=== PATIENT | male | born 1980 | race Caucasian/White ===

== ENCOUNTER 2018-03-06 23:42 | Emergency (ER) | payer BC ==
--- NOTE | 2018-03-07 00:44 | XR ---
EXAMINATION TYPE: XR hand complete LT DATE OF EXAM: 03/07/2018 COMPARISON: NONE HISTORY: Wrist pain and hand pain TECHNIQUE: 3 views FINDINGS: I see no fracture nor dislocation. Metacarpals are intact. Joint spaces are normal. IMPRESSION: Negative left hand exam.
--- NOTE | 2018-03-07 00:45 | XR ---
EXAMINATION TYPE: XR wrist complete LT DATE OF EXAM: 03/07/2018 COMPARISON: NONE HISTORY: Pain TECHNIQUE: 4 views FINDINGS: I see no fracture nor dislocation. Carpal bones are intact. Joint spaces are normal. Soft t issues appear normal. IMPRESSION: Negative left wrist exam.
--- NOTE | 2018-03-07 01:09 | ED ---
Upper Extremity HPI - General Chief Complaint: Extremity Injury, Upper Stated Complaint: Sprained L wrist Source: patient, family Mode of arrival: ambulatory Limitations: no limitations - History of Present Illness Initial Comments: 37-year-old male who denies past medical history presenting today for chief complaint of left wrist pain. Patient states that he was playing with his dog, who is a 7 pound Yorkie. When he was holding onto a toy the dog jumped up trying to cardiac surgeon the 20 from his hand causing him to bend his wrist back. Patient states he thought he heard a pop. He really noticed pain with ulnar and radial deviation of the wrist. Patient denied inability to range of motion , he does admit to pain with range of motion. Patient denied numbness, tingling , loss sensation, color change, coolness of the extremity. Patient denies falling, hitting his head or injury to any other extremity. Patient denies elbow, shoulder pain or injury to the digits. Remainder of ROS negative, patient denies any recent fever, chills, shortness of breath, chest pain, back pain, abdominal pain, nausea or vomiting, numbness or tingling, dysuria or hematuria, constipation or diarrhea, headaches or visual changes, or any other complaints. Upon arrival patient appears well, no signs of acute distress. There is no obvious deformity of the left wrist. Pt vital signs within acceptable limits. - Related Data Home Medications Medication Instructions Recorded Confirmed No Known Home Medications 03/19/16 03/06/18 Allergies Allergy/AdvReac Type Severity Reaction Status Date / Time pollen extracts Allergy Mild Unknown Verified 03/06/18 23:50 mold Allergy Unknown Verified 03/06/18 23:50 Review of Systems ROS Statement: Those systems with pertinent positive or pertinent negative responses have been documented in the HPI. ROS Other: All systems not noted in ROS Statement are negative. Constitutional: Denies: fever, chills ENT: Denies: ear pain, throat pain Respiratory: Denies: cough, dyspnea Cardiovascular: Denies: chest pain Endocrine: Denies: fatigue Gastrointestinal: Denies: abdominal pain, nausea, vomiting Musculoskeletal: Reports: arthralgia. Denies: back pain, joint swelling, myalgia Neurological: Denies: headache, weakness, numbness, paresthesias, confusion, abnormal gait Past Medical History Past Medical History: No Reported History Additional Past Medical History / Comment(s): seasonal allergies History of Any Multi-Drug Resistant Organisms: None Reported Past Surgical History: Cholecystectomy Past Anesthesia/Blood Transfusion Reactions: No Reported Reaction Past Psychological History: No Psychological Hx Reported Smoking Status: Light tobacco smoker Past Alcohol Use History: Occasional Past Drug Use History: None Reported General Exam - General Exam Comments Initial Comments: General: The patient is awake and alert, in no distress, and does not appear acutely ill. Eye: Pupils are equal, round and reactive to light, extra-ocular movements are intact. No nystagmus. There is normal conjunctiva bilaterally. No signs of icterus. Ears, nose, mouth and throat: There are moist mucous membranes and no oral lesions. Neck: The neck is supple, there is no tenderness or JVD. Cardiovascular: There is a regular rate and rhythm. No murmur, rub or gallop is appreciated. Respiratory: Lungs are clear to auscultation, respirations are non-labored, breath sounds are equal. No wheezes, stridor, rales, or rhonchi. Musculoskeletal: Normal ROM at the wrist bilaterally, elbows, shoulders, hands and 5 digits of each hand, patient complains of tenderness with range of motion with ulnar and radial deviation of the left wrist as well as flexion and extension. No evidence of wrist drop. Strength 5/5 with all movements of the left hand. Sensation intact of the upper extremities equally bilaterally including distal to the injury. Radial pulses equal bilaterally 2+. No noted ecchymosis or significant soft tissue swelling. No anatomical snuffbox tenderness. Capillary refill less than 2 seconds Neurological: A&O x 3. CN II-XII intact, There are no obvious motor or sensory deficits. Coordination appears grossly intact. Speech is normal. Skin: Skin is warm and dry and no rashes or lesions are noted. Psychiatric: Cooperative, appropriate mood & affect, normal judgment. Limitations: no limitations Course Vital Signs 03/06/18 03/07/18 23:46 01:15 Temperature 97.7 F 97 F L Pulse Rate 100 57 L Respiratory 20 18 Rate Blood Pressure 131/93 144/75 O2 Sat by Pulse 98 98 Oximetry Medical Decision Making - Medical Decision Making Radiographic imaging negative for acute fracture or process. Patient neurovascularly intact. No noted soft tissue swelling or ecchymosis on exam. No snuffbox tenderness. Patient was placed in Jeffy bandage. This time feel patient has restrained, however if patient's symptoms persist I recommended orthopedic surgery evaluation. Patient is agreeable plan. I recommend following with primary care physician next 1-2 days. As well as following [facility] instructions and taking ibuprofen and Motrin for pain management. I discussed the case with Dr. Wiley who agreed with the impression and plan, patient was discharged in stable condition, patient denies questions at this time. Disposition Clinical Impression: Left wrist pain Disposition: HOME SELF-CARE Condition: Good Instructions: Wrist Injury (ED), R.I.C.E. Treatment (ED) Additional Instructions: Please use medication as discussed. Please follow-up with family doctor in the next 2 days, if symptoms persist for >3 days please seek orthopedic evaluation- see attached referral. Please return to emergency room if the symptoms increase or worsen or for any other concerns. Is patient prescribed a controlled substance at d/c from ED?: No Referrals: Jono Jackson DO [Primary Care Provider] - 1-2 days Aurelia Castro NPC [Nurse Practitioner] - 1-2 days Time of Disposition: 01:09
[2018-03-07 01:16] VITALS: BP 144/75; PULSE 57; RESP 18; TEMP 97
== END 2018-03-07 01:16 | disposition home or self-care (01) ==
LOC: EC 23:42
DX: M25.532 Pain in left wrist (principal); F17.210 Nicotine dependence, cigarettes, uncomplicated; Z91.018 Allergy to other foods; Z91.048 Other nonmedicinal substance allergy status
CPT/HCPCS: 99283

== ENCOUNTER → 2018-05-21 | Outpatient (CLI) | payer BC ==
--- NOTE | 2018-05-22 07:55 | CT ---
EXAMINATION TYPE: CT wrist LT wo con DATE OF EXAM: 05/21/2018 COMPARISON: HISTORY: Nondisplaced fracture of proximal third of navicular bone of LT wrist CT DLP: 243 mGycm Automated exposure control for dose reduction was used. The graft technique: Axial images 2 mm thick sections. Reconstructed images in the coronal and sagittal planes. FINDINGS: Close attention is paid to the scaphoid. In the axial plane there is a lucency extending from the ant erior surface to the midportion of the scaphoid. Some faint extension towards the posterior aspect ma y be present. The borders appear smooth and sclerotic. This could be a nonunion of a fracture. The fr acture appears incomplete through the proximal third of the scaphoid. This appears nondisplaced. In the coronal plane very subtle lucency which may be a nondisplaced fracture at the tip of the ulnar styloid may be present. This is not reproduced on axial or sagittal images. No additional areas suspicious for acute or subacute fractures. Some degenerative joint changes noted at the first carpal metacarpal junction. Scapholunate space appears preserved. Alignment appears nor mal. IMPRESSION: 1. SUSPECTED PARTIAL NONUNION OF A PROXIMAL SCAPHOID FRACTURE. THIS APPEARS TO BE INCOMPLETE FRACTURE LINE THROUGH THE ENTIRE SCAPHOID WHICH MAY HAVE HAD HEALING ANTERIORLY. 2. NONDISPLACED FRACTURE AT THE TIP OF THE ULNAR STYLOID IS NOT EXCLUDED. THIS MAY BE ARTIFACT.
== END | disposition home or self-care (01) ==
LOC: RADCTMAIN 16:45
PROVIDERS: ATTEND Orthopaedic Surgery
DX: S52.615D Nondisplaced fracture of left ulna styloid process, subsequent encounter for closed fracture with routine healing (principal)

== ENCOUNTER → 2018-11-12 | Outpatient (CLI) | payer BC ==
--- NOTE | 2018-11-12 10:40 | CT ---
EXAMINATION TYPE: CT wrist LT wo con DATE OF EXAM: 11/12/2018 COMPARISON: 05/21/2018 HISTORY: Non healing fracture, continued pain post ORIF. CT DLP: 104.2 mGycm Automated exposure control for dose reduction was used. FINDINGS: Interval placement of fixation screw seen through the proximal scaphoid. Screw appears intact. Previo usly seen fracture through the proximal scaphoid appears to be healing/healed with a faint lucency se en on coronal imaging 14 and 15. There is sclerosis and osseous bridging with resolution of the corti ranjit break. Small amount of periprosthetic lucency is seen surrounding the screw measuring 1 mm or les s. No new fracture or dislocation is identified. Small to moderate amount of joint fluid or on the wrist. Tendons and ligaments appear grossly intact. Musculature appears normal. IMPRESSION: LEFT SCAPHOID OPEN REDUCTION AND INTERNAL FIXATION WITH NEAR COMPLETE HEALING OF THE PROXIMAL LEFT SC APHOID FRACTURE. SMALL TO MODERATE WRIST JOINT EFFUSION.
== END | disposition home or self-care (01) ==
LOC: RADCTMAIN 07:58
PROVIDERS: ATTEND Orthopaedic Surgery
DX: Z48.89 Encounter for other specified surgical aftercare (principal); Z98.890 Other specified postprocedural states

== ENCOUNTER → 2018-12-22 | Outpatient (CLI) | payer BC ==
--- NOTE | 2018-12-22 09:35 | XR ---
EXAMINATION TYPE: XR chest 2V DATE OF EXAM: 12/22/2018 COMPARISON: 02/21/2016 TECHNIQUE: PA and lateral views submitted. HISTORY: Cough FINDINGS: The lungs are clear and there is no pneumothorax, pleural effusion, or focal pneumonia. No overt fa ilure. IMPRESSION: 1. No acute process.
== END | disposition home or self-care (01) ==
LOC: RADXRMAIN 09:05
PROVIDERS: ATTEND Family Medicine
DX: J40 Bronchitis, not specified as acute or chronic (principal); R05 Cough
CPT/HCPCS: 71046

== ENCOUNTER → 2019-03-03 | Outpatient (CLI) | payer BC ==
--- NOTE | 2019-03-03 17:03 | CT ---
EXAMINATION TYPE: CT chest abdomen wo con DATE OF EXAM: 03/03/2019 COMPARISON: None HISTORY: CONSTANT COUGH WITH PAIN IN LOWER LUNGS CT DLP: 883.8mGycm Unenhanced CT of the Chest, Abdomen Unenhanced CT of the chest ,abdomen is performed. The lack of intravenous contrast limits evaluatio n of the solid and hollow viscera. Oral contrast: Yes CT Chest: LUNGS: The lungs are clear and free of infiltrate or atelectasis. No pulmonary nodule or mass is det ected. No pleural effusion or CT evidence of interstitial lung disease. MEDIASTINUM: Thoracic aorta is of normal caliber. The heart is not enlarged. No evidence for media stinal mass or adenopathy. HILAR STRUCTURES: No evidence for mass. No hilar adenopathy is appreciated. OTHER: No significant abnormality. CONTRAST CT ABDOMEN AND PELVIS: LIVER/GB: The gallbladder surgically absent. No space occupying hepatic lesion. Biliary tree is of no rmal caliber. PANCREAS: No inflammation. No distinct mass. SPLEEN: No splenic enlargement. No lesion seen. ADRENALS: No nodule. No thickening. KIDNEYS/BLADDER: No hydronephrosis. No nephrolithiasis. No disctinct renal mass. BOWEL: Normal appendix. Normal bowel caliber. No inflammation. LYMPH NODES: No greater than 1cm abdominal or pelvic lymph nodes areappreciated. AORTA: No significant abnormality. OSSEOUS STRUCTURES: No significant abnormality is seen. OTHER: No significant additional abnormality is seen. IMPRESSION: 1. No significant abnormality appreciated.
== END | disposition home or self-care (01) ==
LOC: RADCTMAIN 15:48
PROVIDERS: ATTEND Family Medicine
DX: R05 Cough (principal); R10.11 Right upper quadrant pain
CPT/HCPCS: 71250; 74150

== ENCOUNTER 2020-08-08 07:18 | Observation (INO) | payer BC ==
[2020-08-08] MEDS ORDERED: ASPIRIN 81 MG PO STA (07:29)
[2020-08-08] MEDS ORDERED: NITROGLYCERIN OINT 1 INCH/GM PACKET TOPICAL STA (07:29)
--- NOTE | 2020-08-08 07:31 | ED ---
General Adult HPI - General Chief complaint: Recheck/Abnormal Lab/Rx Stated complaint: High BP Time Seen by Provider: 08/08/20 07:24 Source: patient, RN notes reviewed Mode of arrival: ambulatory Limitations: no limitations - History of Present Illness Initial comments: Patient is a pleasant 39-year-old male presenting to the emergency Department with complaints of hypertension. Patient has had borderline hypertension and is monitoring this at home since discussion with his doctor around 6 months ago. Normally his blood pressure is running around 140/100. Today blood pressure was 180/120. Patient is having some tightness in his chest. Patient does feel little bit lightheaded. No dyspnea. No nausea. No diaphoresis. No radiation of tightness. Tightness has been mild and remains mild, rated 1 or 2/10. No leg pain or leg swelling. - Related Data Home Medications Medication Instructions Recorded Confirmed No Known Home Medications 08/08/20 08/08/20 Allergies Allergy/AdvReac Type Severity Reaction Status Date / Time pollen extracts AdvReac Mild congestion Verified 08/08/20 07:49 mold AdvReac congestion Verified 08/08/20 07:49 Review of Systems ROS Statement: Those systems with pertinent positive or pertinent negative responses have been documented in the HPI. ROS Other: All systems not noted in ROS Statement are negative. Constitutional: Denies: fever Eyes: Denies: eye pain ENT: Denies: ear pain Respiratory: Denies: cough Cardiovascular: Reports: as per HPI. Denies: palpitations Endocrine: Denies: fatigue Gastrointestinal: Denies: abdominal pain Genitourinary: Denies: urgency Musculoskeletal: Denies: back pain Skin: Denies: rash Neurological: Denies: weakness Past Medical History Past Medical History: Hypertension Additional Past Medical History / Comment(s): seasonal allergies, hiatal hernia, lower abdominal pain when eating, History of Any Multi-Drug Resistant Organisms: None Reported Past Surgical History: Cholecystectomy, Orthopedic Surgery Additional Past Surgical History / Comment(s): ORIF left wrist Past Anesthesia/Blood Transfusion Reactions: Family History of Problems w/ Anesthesia Additional Past Anesthesia/Blood Transfusion Reaction / Comment(s): mother-hard time coming out Past Psychological History: No Psychological Hx Reported Smoking Status: Never smoker Past Alcohol Use History: Occasional Past Drug Use History: None Reported - Past Family History Mother Family Medical History: No Reported History General Exam Limitations: no limitations General appearance: alert, in no apparent distress Head exam: Present: normocephalic Eye exam: Present: normal appearance Neck exam: Present: normal inspection Respiratory exam: Present: normal lung sounds bilaterally. Absent: chest wall tenderness Cardiovascular Exam: Present: regular rate, normal rhythm, normal heart sounds Expanded Peripheral pulses: 2+: Radial (R), Radial (L), Posterior Tibialis (R), Posterior Tibialis (L) GI/Abdominal exam: Present: soft. Absent: tenderness Extremities exam: Present: normal inspection. Absent: pedal edema, calf tenderness Neurological exam: Present: alert Psychiatric exam: Present: normal affect, normal mood Skin exam: Present: normal color Course Vital Signs 08/08/20 08/08/20 08/08/20 07:20 07:43 08:30 Temperature 98.8 F Pulse Rate 72 69 Pulse Rate [ 72 Sustainability Analyst ] Respiratory 20 18 Rate Blood Pressure 164/112 142/103 O2 Sat by Pulse 99 100 Oximetry 08/08/20 09:15 Temperature Pulse Rate 69 Pulse Rate [ Sustainability Analyst ] Respiratory 18 Rate Blood Pressure 145/104 O2 Sat by Pulse 100 Oximetry EKG Findings - EKG Comments: EKG Findings:: Normal sinus rhythm with a rate of 66. SD 170. QRS 84. QT 414. QTC 434. Normal axis. Normal QRS. T wave inversion lead 3. Medical Decision Making - Medical Decision Making Patient reevaluated and resting comfortably in bed. Symptoms have improved with nitroglycerin paste. Blood pressure remains high. Additional medication, metoprolol ordered. Dr. Lockhart has been paged for admission, covering for Dr. Rodriguez. Case was discussed with Dr. Lockhart, who will admit. - Lab Data Result diagrams: 08/08/20 07:39 08/08/20 07:39 Lab Results 08/08/20 08/08/20 08/08/20 Range/Units 07:39 07:39 07:39 WBC 4.9 (3.8-10.6) k/uL RBC 4.93 (4.30-5.90) m/uL Hgb 16.4 (13.0-17.5) gm/dL Hct 46.3 (39.0-53.0) % MCV 93.9 (80.0-100.0) fL MCH 33.2 (25.0-35.0) pg MCHC 35.4 (31.0-37.0) g/dL RDW 12.1 (11.5-15.5) % Plt Count 191 (150-450) k/uL MPV 8.0 Neutrophils % 57 % Lymphocytes % 28 % Monocytes % 9 % Eosinophils % 3 % Basophils % 1 % Neutrophils # 2.8 (1.3-7.7) k/uL Lymphocytes # 1.4 (1.0-4.8) k/uL Monocytes # 0.5 (0-1.0) k/uL Eosinophils # 0.1 (0-0.7) k/uL Basophils # 0.1 (0-0.2) k/uL PT 10.1 (9.0-12.0) sec INR 0.9 (<1.2) APTT 22.5 (22.0-30.0) sec Sodium 137 (137-145) mmol/L Potassium 4.0 (3.5-5.1) mmol/L Chloride 103 (98-107) mmol/L Carbon Dioxide 25 (22-30) mmol/L Anion Gap 9 mmol/L BUN 8 L (9-20) mg/dL Creatinine 0.91 (0.66-1.25) mg/dL Est GFR (CKD-EPI)AfAm >90 (>60 ml/min/1.73 sqM) Est GFR (CKD-EPI)NonAf >90 (>60 ml/min/1.73 sqM) Glucose 112 H (74-99) mg/dL Calcium 9.2 (8.4-10.2) mg/dL Magnesium 1.8 (1.6-2.3) mg/dL Total Bilirubin 1.4 H (0.2-1.3) mg/dL AST 52 (17-59) U/L ALT 49 (4-49) U/L Alkaline Phosphatase 86 (38-126) U/L Troponin I (0.000-0.034) ng/mL Total Protein 7.7 (6.3-8.2) g/dL Albumin 4.5 (3.5-5.0) g/dL 08/08/20 Range/Units 07:39 WBC (3.8-10.6) k/uL RBC (4.30-5.90) m/uL Hgb (13.0-17.5) gm/dL Hct (39.0-53.0) % MCV (80.0-100.0) fL MCH (25.0-35.0) pg MCHC (31.0-37.0) g/dL RDW (11.5-15.5) % Plt Count (150-450) k/uL MPV Neutrophils % % Lymphocytes % % Monocytes % % Eosinophils % % Basophils % % Neutrophils # (1.3-7.7) k/uL Lymphocytes # (1.0-4.8) k/uL Monocytes # (0-1.0) k/uL Eosinophils # (0-0.7) k/uL Basophils # (0-0.2) k/uL PT (9.0-12.0) sec INR (<1.2) APTT (22.0-30.0) sec Sodium (137-145) mmol/L Potassium (3.5-5.1) mmol/L Chloride (98-107) mmol/L Carbon Dioxide (22-30) mmol/L Anion Gap mmol/L BUN (9-20) mg/dL Creatinine (0.66-1.25) mg/dL Est GFR (CKD-EPI)AfAm (>60 ml/min/1.73 sqM) Est GFR (CKD-EPI)NonAf (>60 ml/min/1.73 sqM) Glucose (74-99) mg/dL Calcium (8.4-10.2) mg/dL Magnesium (1.6-2.3) mg/dL Total Bilirubin (0.2-1.3) mg/dL AST (17-59) U/L ALT (4-49) U/L Alkaline Phosphatase (38-126) U/L Troponin I <0.012 (0.000-0.034) ng/mL Total Protein (6.3-8.2) g/dL Albumin (3.5-5.0) g/dL - Radiology Data Radiology results: image reviewed (Chest x-ray shows no acute process) Disposition Clinical Impression: Chest pain, Hypertension Disposition: ADMITTED IP TO THIS [facility] Is patient prescribed a controlled substance at d/c from ED?: No Referrals: Jono Jackson DO [Primary Care Provider] - 1-2 days Decision Time: 09:27
--- NOTE | 2020-08-08 08:04 | XR ---
EXAMINATION TYPE: XR chest 2V DATE OF EXAM: 08/08/2020 COMPARISON: Chest x-ray 12/22/2018 HISTORY: Chest pain and hypertension TECHNIQUE: Frontal and lateral views of the chest are obtained. FINDINGS: There is no focal air space opacity, pleural effusion, or pneumothorax seen. The cardiac silhouette size is within normal limits. The osseous structures are intact. There are overlying jayesh ds. IMPRESSION: No acute cardiopulmonary process.
[2020-08-08 08:08] LABS: Basophils # (A) 0.1 k/uL (0-0.2); Basophils % (A) 1 %; Eosinophils # (A) 0.1 k/uL (0-0.7); Eosinophils % (A) 3 %; HCT 46.3 % (39.0-53.0); HGB 16.4 gm/dL (13.0-17.5); Lymphocytes # (A) 1.4 k/uL (1.0-4.8); Lymphocytes % (A) 28 %; MCH 33.2 pg (25.0-35.0); MCHC 35.4 g/dL (31.0-37.0); MCV 93.9 fL (80.0-100.0); Monocytes # (A) 0.5 k/uL (0-1.0); Monocytes % (A) 9 %; Neutrophils # (A) 2.8 k/uL (1.3-7.7); Neutrophils % (A) 57 %; Platelet Count 191 k/uL (150-450); RBC 4.93 m/uL (4.30-5.90); RDW 12.1 % (11.5-15.5); WBC 4.9 k/uL (3.8-10.6)
[2020-08-08 08:16] LABS: ALT 49 U/L (4-49); AST 52 U/L (17-59); African American GFR (CKD) >90 (>60 ml/min/1.73 sqM); Albumin 4.5 g/dL (3.5-5.0); Alkaline Phosphatase 86 U/L (38-126); Anion Gap 9 mmol/L; Blood Urea Nitrogen 8 mg/dL (9-20); Calcium 9.2 mg/dL (8.4-10.2); Carbon Dioxide 25 mmol/L (22-30); Chloride 103 mmol/L (98-107); Glucose 112 mg/dL (74-99); Magnesium 1.8 mg/dL (1.6-2.3); Non-African American GFR(CKD) >90 (>60 ml/min/1.73 sqM); Sodium 137 mmol/L (137-145); Total Bilirubin 1.4 mg/dL (0.2-1.3); Total Protein 7.7 g/dL (6.3-8.2)
[2020-08-08 08:21] LABS: INR 0.9 (<1.2); Partial Thromboplastin Time 22.5 sec (22.0-30.0); Prothrombin Time 10.1 sec (9.0-12.0)
[2020-08-08 08:31] VITALS: RESP 18
[2020-08-08] MEDS ORDERED: METOPROLOL TARTRATE 25 MG TAB PO STA (08:35)
[2020-08-08] MEDS ORDERED: NITROGLYCERIN SL TABS 0.4 MG TAB SUBLINGUAL PRN (09:27)
[2020-08-08] MEDS: NITROGLYCERIN OINT 1 INCH/GM PACKET TOPICAL SCH ×3 (12:13→23:35)
--- NOTE | 2020-08-08 14:53 | P.HPIM ---
History of Present Illness H&P Date: 08/08/20 39 years old male with past medical history of hypertension and diet- controlled follows Dr. Herring comes in with acute onset of dizziness that started last night. Patient took a couple aspirin and responds and went to bed. He noticed he was still dizzy in the morning and had some heaviness in his chest. His vision was bloody and he was unable to concentrate. He does document GERD like symptoms on laying flat. He checked his blood pressure at home and his systolic was at 170. Since there was no improvement in symptoms patient decided to come to the ER. He was recently diagnosed with COVID-19 50 days ago with both his and daughter who was symptomatic. Patient denies having any symptoms from COVID-19. He denies any cough, shortness of breath, palpitations, previous episodes of chest pain. He does see Dr. Ramos for hiatal hernia and was told it is getting better on his last follow-up. He takes omeprazole intermittently. On assessment of patient's vital in the ER patient had temp of 98.8 pulse 70 respiratory rate 20 blood pressure 164/112 oxygen saturation 99% room air. Patient received a dose of aspirin and Nitropaste. Chest pain resolved within an hour of the Nitropaste. EKG was obtained that was negative for any ST or T-wave changes appears normal sinus rhythm. Troponin 1 was negative. Chest x-ray was negative for any acute cardiopulmonary process. Repeat troponin pending. Cardiology consulted. Echocardiogram ordered. Review of Systems Constitutional: Denies chills, Denies fever, Denies lethargy, Denies malaise, Denies poor appetite, Denies weakness, Denies weight loss Eyes: denies decreased vision, denies diplopia, denies discharge, denies pain Ears: deny: decreased hearing Ears, nose, mouth and throat: Denies dental pain, Denies headache, Denies nasal discharge, Denies nose pain Cardiovascular: Endorses chest heaviness, Denies decreased exercise tolerance, Denies edema, endorses high blood pressure, Denies irregular heart beat, Denies palpitations, Denies paroxysmal nocturnal dyspnea, Denies rapid heart beat, Denies shortness of breath Respiratory: Denies congestion, Denies cough, Denies cough with sputum, Denies dyspnea, Denies home oxygen, Denies wheezing Gastrointestinal: Endorses epigastric pain Denies change in bowel habits, Denies coffee ground emesis, Denies early satiety, Denies excessive gas, endorses heartburn, Denies hematemesis, Denies hematochezia, Denies loss of appetite, Denies nausea, Denies vomiting Genitourinary: Denies dysuria, Denies flank pain, Denies kidney stones, Denies menorrhagia, Denies urgency, Denies urinary frequency Musculoskeletal: Denies gait dysfunction, Denies limitation of motion, Denies morning stiffness, Denies muscle cramps Integumentary: Denies rash, Denies wounds, Denies brittle nails, Denies change in hair/nails, Denies darkening of skin Neurological: Denies balance difficulties, Denies change in speech, Denies double vision, Denies gait dysfunction, Denies loss of vision, Denies motor disturbance, Denies numbness, Denies paralysis, Denies paresthesias, Denies seizures Psychiatric: Denies anxiety, Denies depression Endocrine: Denies excessive sweating, Denies excessive thirst, Denies high blood sugars, Denies palpitations Hematologic/Lymphatic: Denies easy bruising, Denies lymphadenopathy Past Medical History Past Medical History: Hypertension Additional Past Medical History / Comment(s): seasonal allergies, hiatal hernia, lower abdominal pain when eating, History of Any Multi-Drug Resistant Organisms: None Reported Past Surgical History: Cholecystectomy, Orthopedic Surgery Additional Past Surgical History / Comment(s): ORIF left wrist Past Anesthesia/Blood Transfusion Reactions: Family History of Problems w/ Anesthesia Additional Past Anesthesia/Blood Transfusion Reaction / Comment(s): mother-hard time coming out Past Psychological History: No Psychological Hx Reported Smoking Status: Never smoker Past Alcohol Use History: Occasional Past Drug Use History: None Reported - Past Family History Mother Family Medical History: No Reported History, Coronary Artery Disease (CAD) Additional Family Medical History / Comment(s): stent placed 3 years ago at age 60 Father Family Medical History: Congestive Heart Failure (CHF) (13 siblings, 3 biological , with no heart disease ) Medications and Allergies Home Medications Medication Instructions Recorded Confirmed Type No Known Home Medications 08/08/20 08/08/20 History Allergies Allergy/AdvReac Type Severity Reaction Status Date / Time pollen extracts AdvReac Mild congestion Verified 08/08/20 07:49 mold AdvReac congestion Verified 08/08/20 07:49 Physical Exam Vitals: Vital Signs Temp Pulse Pulse Resp BP Pulse Ox 08/08/20 09:55 98.1 F 60 18 136/93 100 08/08/20 09:15 69 18 145/104 100 08/08/20 08:30 69 18 142/103 100 08/08/20 07:43 72 08/08/20 07:20 98.8 F 72 20 164/112 99 Intake and Output 08/07/20 08/08/20 08/08/20 22:59 06:59 14:59 Other: Weight 99.79 kg - Constitutional General appearance: cooperative, no acute distress, obese - EENT Eyes: anicteric sclerae, PERRLA, normal appearance ENT: hearing grossly normal - Neck Neck: no lymphadenopathy, normal ROM, no other, no rigidity, no stridor, no thyromegaly - Respiratory Respiratory: bilateral: CTA, negative: diminished, dullness, rales, rhonchi - Cardiovascular Rhythm: regular Heart sounds: normal: S1, S2 Abnormal Heart Sounds: no systolic murmur, no diastolic murmur, no rub, no S3 Gallop, no S4 Gallop, no click, no other - Gastrointestinal General gastrointestinal: normal bowel sounds, soft mild epigastric tenderness - Integumentary Integumentary: no rash - Neurologic Neurologic: CNII-XII intact - Musculoskeletal Musculoskeletal: gait normal, strength equal bilaterally - Psychiatric Psychiatric: A&O x's 3, appropriate affect Results CBC & Chem 7: 08/08/20 07:39 08/08/20 07:39 Labs: Abnormal Lab Results - Last 24 Hours (Table) 08/08/20 Range/Units 07:39 BUN 8 L (9-20) mg/dL Glucose 112 H (74-99) mg/dL Total Bilirubin 1.4 H (0.2-1.3) mg/dL Thrombosis Risk Factor Assmnt - DVT/VTE Prophylaxis DVT/VTE Prophylaxis: Mechanical Prophylaxis ordered - Choose All That Apply Each Factor Represents 1 point: Age 41-60 years Thrombosis Risk Factor Assessment Total Risk Factor Score: 1 Thrombosis Risk Factor Assessment Level: Low Risk Assessment and Plan Plan: #1 acute chest pain likely secondary to hypertension. Troponin 2 negative. EKG normal sinus rhythm. Cardiology consulted. Echocardiogram ordered. 2 acute epigastric pain likely secondary to gastritis and hiatal hernia. Omeprazole 20 mg by mouth daily empty stomach #3 hypertension patient on metoprolol 25 twice a day and Norvasc 5 mg by mouth daily. #4 CODE STATUS full code #5 DVT prophylaxis with SCDs #6 GI prophylaxis with omeprazole #7 disposition patient will stay on observation for next 24 hours
[2020-08-08] MEDS: METOPROLOL TARTRATE 25 MG TAB PO SCH (20:48)
[2020-08-09] MEDS: NITROGLYCERIN OINT 1 INCH/GM PACKET TOPICAL SCH (05:16)
[2020-08-09 07:35] LABS: Cholesterol 247 mg/dL (<200); HDL Cholesterol 57 mg/dL (40-60); LDL Cholesterol,Calculated 149 mg/dL (0-99); Triglycerides 207 mg/dL (<150)
[2020-08-09 08:12] VITALS: TEMP 98
[2020-08-09] MEDS ORDERED: ASPIRIN 81 MG PO SCH (09:00)
[2020-08-09] MEDS ORDERED: ASPIRIN 325 MG TAB PO SCH (09:00)
[2020-08-09] MEDS ORDERED: lisinopriL 5 MG TAB PO SCH (09:30)
--- NOTE | 2020-08-09 10:44 | P.CRDCN ---
History of Present Illness Consult date: 08/08/20 History of present illness: HISTORY OF PRESENT ILLNESS: This is a 3-year-old female with a past medical history significant for hypertension and former nicotine dependence. 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 We have been asked to see the patient in consultation for chest pain and hypertension. Patient examined at the bedside. Patient states he was feeling dizzy yesterday. Patient checked his BP and it was elevated with a systolic in the 170s so he came to the ER. Patient denies having any chest pain. He states the ER doctor pushed on his chest and it was tender, but he denies having any chest discomfort this morning. He denies shortness of breath, cough, or congestion. Patient was started on metoprolol 25 mg twice a day in the emergency room. Blood pressure this morning is 131/80. Heart rate in the 70s. EKG reveals sinus mechanism with no signs of acute ischemia Chest xray negative for acute process Laboratory data: WBC 4.9. Hemoglobin 16.4. Platelet count 191. Sodium 137. Potassium 4.0. BUN 8. Creatinine 0.91. Troponin negative 2. LDL 149. Current home cardiac medications include none REVIEW OF SYSTEMS: At the time of my exam: CONSTITUTIONAL: Denies fever or chills. HEENT: Denies blurred vision, vision changes, or eye pain. Denies hemoptysis CARDIOVASCULAR: Denies chest pain. Denies orthopnea. Denies PND. Denies palpitations RESPIRATORY: Denies shortness of breath. GASTROINTESTINAL: Denies abdominal pain. Denies nausea or vomiting. HEMATOLOGIC: Denies bleeding disorders. GENITOURINARY: Denies any blood in urine. SKIN: Denies pruitis. Denies rash. PHYSICAL EXAM: VITAL SIGNS: Reviewed. GENERAL: Well-developed in no acute distress. HEENT: Head is normocephalic. Pupils are equal, round. Sclerae anicteric. Mucous membranes of the mouth are moist. Neck supple. No JVD or thyromegaly LUNGS: Respirations even and unlabored. Lungs essentially clear to auscultation bilaterally. HEART: Regular rate and rhythm. S1 and S2 heard. ABDOMEN: Soft. Nondistended. Nontender. EXTREMITIES: Normal range of motion. No clubbing or cyanosis. Peripheral pulses intact. No lower extremity edema NEUROLOGIC: Awake and alert. Oriented x 3. ASSESSMENT: Chest pain Hypertension, uncontrolled on admission Hyperlipidemia Former nicotine dependence PLAN: An acute coronary event has been ruled out Obtain 2-D echo to assess cardiac structure and function Continue metoprolol 25 mg twice a day Add lisinopril 5 mg daily for afterload blood pressure control Add atorvastatin 20 mg daily. Recommend lifestyle and dietary modifications for elevated LDL Patient to undergo stress echocardiogram today to assess for stress-induced ischemia Further recommendations pending patient's course Nurse practitioner note has been reviewed by physician. Signing provider agrees with the documented findings, assessment, and plan of care. Past Medical History Past Medical History: Hypertension Additional Past Medical History / Comment(s): seasonal allergies, hiatal hernia, lower abdominal pain when eating, History of Any Multi-Drug Resistant Organisms: None Reported Past Surgical History: Cholecystectomy, Orthopedic Surgery Additional Past Surgical History / Comment(s): ORIF left wrist Past Anesthesia/Blood Transfusion Reactions: Family History of Problems w/ Anesthesia Additional Past Anesthesia/Blood Transfusion Reaction / Comment(s): mother-hard time coming out Past Psychological History: No Psychological Hx Reported Smoking Status: Never smoker Past Alcohol Use History: Occasional Past Drug Use History: None Reported - Past Family History Mother Family Medical History: No Reported History Father Family Medical History: Congestive Heart Failure (CHF) Medications and Allergies Home Medications Medication Instructions Recorded Confirmed Type No Known Home Medications 08/08/20 08/08/20 History Allergies Allergy/AdvReac Type Severity Reaction Status Date / Time pollen extracts AdvReac Mild congestion Verified 08/08/20 07:49 mold AdvReac congestion Verified 08/08/20 07:49 Physical Exam Vitals: Vital Signs Temp Pulse Pulse Resp BP Pulse Ox 08/08/20 09:55 98.1 F 60 18 136/93 100 08/08/20 09:15 69 18 145/104 100 08/08/20 08:30 69 18 142/103 100 08/08/20 07:43 72 08/08/20 07:20 98.8 F 72 20 164/112 99 Intake and Output 08/07/20 08/08/20 08/08/20 22:59 06:59 14:59 Other: Weight 99.79 kg Results 08/08/20 07:39 08/08/20 07:39 Cardiac Enzymes 08/08/20 08/08/20 08/08/20 Range/Units 07:39 07:39 10:15 AST 52 (17-59) U/L Troponin I <0.012 <0.012 (0.000-0.034) ng/mL Coagulation 08/08/20 Range/Units 07:39 PT 10.1 (9.0-12.0) sec APTT 22.5 (22.0-30.0) sec CBC 08/08/20 Range/Units 07:39 WBC 4.9 (3.8-10.6) k/uL RBC 4.93 (4.30-5.90) m/uL Hgb 16.4 (13.0-17.5) gm/dL Hct 46.3 (39.0-53.0) % Plt Count 191 (150-450) k/uL Comprehensive Metabolic Panel 08/08/20 Range/Units 07:39 Sodium 137 (137-145) mmol/L Potassium 4.0 (3.5-5.1) mmol/L Chloride 103 (98-107) mmol/L Carbon Dioxide 25 (22-30) mmol/L BUN 8 L (9-20) mg/dL Creatinine 0.91 (0.66-1.25) mg/dL Glucose 112 H (74-99) mg/dL Calcium 9.2 (8.4-10.2) mg/dL AST 52 (17-59) U/L ALT 49 (4-49) U/L Alkaline Phosphatase 86 (38-126) U/L Total Protein 7.7 (6.3-8.2) g/dL Albumin 4.5 (3.5-5.0) g/dL Current Medications Generic Name Dose Route Start Last Admin Trade Name Freq PRN Reason Stop Dose Admin Aspirin 325 mg 08/09/20 09:00 Aspirin 325 Mg Tab PO DAILY ALLI Metoprolol Tartrate 25 mg 08/08/20 21:00 Metoprolol Tartrate 25 Mg Tab PO BID ALLI Nitroglycerin 0.4 mg 08/08/20 09:27 Nitroglycerin Sl Tabs 0.4 Mg Tab SUBLINGUAL Q5M PRN Chest Pain Nitroglycerin 1 inch 08/08/20 12:00 08/08/20 12:13 Nitroglycerin Oint 1 Inch/Gm Packet TOPICAL 1 inch Q6HR ALLI Administration Sodium Chloride 10 ml 08/08/20 21:00 Sodium Chloride 0.9% Flush 10 Ml Syringe IV BID ALLI Intake and Output 08/07/20 08/08/20 08/08/20 22:59 06:59 14:59 Other: Weight 99.79 kg Patient Weight 08/09/20 06:59 Weight 99.79 kg 08/08/20 07:39 08/08/20 07:39
--- NOTE | 2020-08-09 12:01 | P.STRESS ---
- Stress Test Note Stress Test Results/Findings: Exam Performed: stress echo exercise Exam Date: 08/09/20 Reason for Exam: CP Height: 5 ft 9 in Weight: 99.79 kg Protocol: STRESS ECHO Stage: IV Duration of Exercise: 12.01 Resting Heart Rate: 59 Resting Blood Pressure: 120/71 Maximum Achieved Heart Rate: 163 Maximum Achieved Blood Pressure: 207/102 85% PMHR: 153 100% PMHR: 180 METS: Technologist Comment: Stress Test Results/Findings: This is a 39-year-old gentleman with history of hypertension who was admitted to the hospital with chest pains. Stress data: Baseline EKG showed sinus rhythm with normal [place] and QRS duration. Blood pressure at rest is 120/70 with pulse rate of 59. Patient walked on the Jovan protocol for 12 minutes achieving a maximal heart rate of 163 with a blood pressure of 207 102. EKGs taken during and after x-ray did not reveal any change of ischemia. Patient did not experience any chest pain. Echo data: Baseline echo images show normal wall motion and thickening. Exercise echo images showed augmentation of wall motion and thickening in all the segments. Final impression: #1. Negative stress test #2. Negative stress echo.
--- NOTE | 2020-08-09 12:31 | ECHOF ---
Referral Reason:chest pain MEASUREMENTS -------- HEIGHT: 175.3 cm WEIGHT: 99.8 kg BP: 136/93 RVIDd: 3.2 cm (< 3.3) IVSd: 1.2 cm (0.6 - 1.1) LVIDd: 3.9 cm (3.9 - 5.3) LVPWd: 1.1 cm (0.6 - 1.1) IVSs: 1.5 cm LVIDs: 3.1 cm LVPWs: 1.8 cm LA Diam: 3.3 cm (2.7 - 3.8) LAESV Index (A-L): 16.54 ml/m Ao Diam: 3.9 cm (2.0 - 3.7) AV Cusp: 2.2 cm (1.5 - 2.6) MV EXCURSION: 18.048 mm (> 18.000) MV EF SLOPE: 78 mm/s (70 - 150) EPSS: 0.5 cm MV E Josef: 0.77 m/s MV DecT: 296 ms MV A Josef: 0.52 m/s MV E/A Ratio: 1.48 FINDINGS -------- Sinus rhythm. This was a technically adequate study. The left ventricular size is normal. There is borderline concentric left ventricular hypertrophy. Overall left ventricular systolic function is normal with, an EF between 60 - 65 %. The right ventricle is normal in size. Normal LA size by volume 22+/-6 ml/m2. The right atrium is normal in size. Interatrial and interventricular septum intact. The aortic valve is trileaflet, and appears structurally normal. No aortic stenosis or regurgitation. The mitral valve is normal. The tricuspid valve appears structurally normal. The pulmonic valve was not well visualized. The aortic root is dilated measuring 3.9cm. Normal inferior vena cava with normal inspiratory collapse consistent with estimated right atrial pre ssure of 5 mmHg. There is no pericardial effusion. CONCLUSIONS -------- 1. The left ventricular size is normal. 2. There is borderline concentric left ventricular hypertrophy. 3. Overall left ventricular systolic function is normal with, an EF between 60 - 65 %. 4. The aortic valve is trileaflet, and appears structurally normal. No aortic stenosis or regurgitati on. 5. The aortic root is dilated measuring 3.9cm. 6. There is no pericardial effusion. RESOURCE DEVELOPMENT DIRECTOR: Sosa Sanchez RDCS
[2020-08-09] MEDS: METOPROLOL TARTRATE 25 MG TAB PO SCH (12:38)
--- NOTE | 2020-08-09 14:51 | P.DS ---
Providers Date of admission: 08/08/20 09:27 Expected date of discharge: 08/09/20 Attending physician: Danielle Rogers MD Consults: 08/08/20 09:27 Consult Physician Urgent Consulting Provider: Olivier Saravia Consult Reason/Comments: cp, htn Do you want consulting provider notified?: Yes Primary care physician: [facility] Course: 39 years old male with past medical history of hypertension and diet- controlled follows Dr. Herring comes in with acute onset of dizziness that started last night. Patient took a couple aspirin and responds and went to bed. He noticed he was still dizzy in the morning and had some heaviness in his chest. His vision was blurry and he was unable to concentrate. He does document GERD like symptoms on laying flat. He checked his blood pressure at home and his systolic was at 170. Since there was no improvement in symptoms patient decided to come to the ER. He was recently diagnosed with COVID-19 50 days ago with both his and daughter who was symptomatic. Patient denies having any symptoms from COVID-19. He denies any cough, shortness of breath, palpitations, previous episodes of chest pain. He does see Dr. Ramos for hiatal hernia and was told it is getting better on his last follow-up. He takes omeprazole intermittently. On assessment of patient's vital in the ER patient had temp of 98.8 pulse 70 respiratory rate 20 blood pressure 164/112 oxygen saturation 99% room air. Patient received a dose of aspirin and Nitropaste. Chest pain resolved within an hour of the Nitropaste. EKG was obtained that was negative for any ST or T-wave changes appears normal sinus rhythm. Troponin 1 was negative. Chest x-ray was negative for any acute cardiopulmonary process. Repeat troponin pending. Cardiology consulted. Echocardiogram ordered. 08/09: Patient underwent stress testing today, he had a negative stress test and a negative stress echo. Echo showed borderline concentric left ventricular hypertrophy, EF between 60-65%. Cholesterol was elevated total cholesterol 247, triglycerides 207, LDL 149, HDL 57. Vital signs are stable he's afebrile temp is 98.0, pulse is 70 respiratory 18 blood pressure 131/80. Be discharged home on Lipitor, Lopressor, and lisinopril. Discharge Diagnosis: #1 chest pain secondary to hypertension. 2 acute epigastric pain likely secondary to gastritis and hiatal hernia. #3 hypertension The above impression and plan of care have been discussed and directed by signing physician. Trinity Fowler nurse practitioner acting as scribe for signing physician. Plan - Discharge Summary New Discharge Prescriptions: New Atorvastatin [Lipitor] 20 mg PO HS #30 tab Metoprolol Tartrate [Lopressor] 25 mg PO BID #60 tab lisinopriL [Zestril] 5 mg PO DAILY #30 tab Discharge Medication List Atorvastatin [Lipitor] 20 mg PO HS #30 tab 08/09/20 [Rx] Metoprolol Tartrate [Lopressor] 25 mg PO BID #60 tab 08/09/20 [Rx] lisinopriL [Zestril] 5 mg PO DAILY #30 tab 08/09/20 [Rx] Follow up Appointment(s)/Referral(s): Jono Jackson DO [Primary Care Provider] - 08/30/20 1:30 pm Olivier Saravia MD [STAFF PHYSICIAN] - 1 Week (Cardiology office will call with appointment time) Patient Instructions/Handouts: Chest Pain (DC), Heart Healthy Diet (DC) Discharge Disposition: HOME SELF-CARE
[2020-08-09 15:23] VITALS: BP 124/84; PULSE 89
[2020-08-09] MEDS ORDERED: ATORVASTATIN 20 MG TAB PO SCH (21:00)
--- NOTE | 2020-08-10 08:37 | ECHOS ---
Stress Test Results/Findings: Exam Performed: stress echo exercise Exam Date: 08/09/20 Reason for Exam: CP Height: 5 ft 9 in Weight: 99.79 kg Protocol: STRESS ECHO Stage: IV Duration of Exercise: 12.01 Resting Heart Rate: 59 Resting Blood Pressure: 120/71 Maximum Achieved Heart Rate: 163 Maximum Achieved Blood Pressure: 207/102 85% PMHR: 153 100% PMHR: 180 METS: Technologist Comment: Stress Test Results/Findings: This is a 39-year-old gentleman with history of hypertension who was admitted to the hospital with chest pains. Stress data: Baseline EKG showed sinus rhythm with normal LA and QRS duration. Blood pressure at rest is 120/70 with pulse rate of 59. Patient walked on the Jovan protocol for 12 minutes achieving a maximal heart rate of 163 with a blood pressure of 207 102. EKGs taken during and after x-ray did not reveal any change of ischemia. Patient did not experience any chest pain. Echo data: Baseline echo images show normal wall motion and thickening. Exercise echo images showed augmentation of wall motion and thickening in all the segments. Final impression: #1. Negative stress test #2. Negative stress echo. VON
== END 2020-08-09 15:22 | disposition home or self-care (01) ==
LOC: EC 07:18 → 6NMEDSUR 09:27
PROVIDERS: ADMIT Internal Medicine; ATTEND Internal Medicine
DX: R07.89 Other chest pain (principal); I10 Essential (primary) hypertension; R10.13 Epigastric pain; K44.9 Diaphragmatic hernia without obstruction or gangrene; K29.70 Gastritis, unspecified, without bleeding; R42 Dizziness and giddiness; H53.8 Other visual disturbances; E78.5 Hyperlipidemia, unspecified; J30.2 Other seasonal allergic rhinitis; Z20.822 Contact with and (suspected) exposure to COVID-19; Z79.899 Other long term (current) drug therapy; Z87.891 Personal history of nicotine dependence; Z86.16 Personal history of COVID-19; Z87.81 Personal history of (healed) traumatic fracture; Z90.49 Acquired absence of other specified parts of digestive tract; Z82.49 Family history of ischemic heart disease and other diseases of the circulatory system; Z91.048 Other nonmedicinal substance allergy status; Z91.09 Other allergy status, other than to drugs and biological substances
CPT/HCPCS: 99285; 36415; 94760; 93005; 93306; 93351; 80061; 80053; 83735; 84484 ×2; 85025; 85610; 85730; 87635; 71046; G0378 ×2

== ENCOUNTER 2020-12-04 19:25 | Emergency (ER) | payer BC ==
[2020-12-04 19:50] VITALS: TEMP 99.1
[2020-12-04] MEDS ORDERED: LOSARTAN 50 MG TAB PO STA (19:57)
[2020-12-04] MEDS ORDERED: SODIUM CHLORIDE 0.9% 1,000 ML IV STA (19:57)
[2020-12-04] MEDS ORDERED: ONDANSETRON 4 MG/2 ML VIAL IVP STA (19:57)
[2020-12-04 20:56] LABS: Basophils % (A) 1 %; Eosinophils # (A) 0.1 k/uL (0-0.7); Eosinophils % (A) 2 %; HCT 44.1 % (39.0-53.0); HGB 15.4 gm/dL (13.0-17.5); Lymphocytes % (A) 16 %; MCH 33.8 pg (25.0-35.0); MCHC 34.9 g/dL (31.0-37.0); MCV 96.9 fL (80.0-100.0); Mean Platelet Volume 7.4; Monocytes # (A) 0.3 k/uL (0-1.0); Monocytes % (A) 5 %; Neutrophils # (A) 4.7 k/uL (1.3-7.7); Neutrophils % (A) 76 %; Platelet Count 210 k/uL (150-450); RBC 4.55 m/uL (4.30-5.90); RDW 13.1 % (11.5-15.5); WBC 6.2 k/uL (3.8-10.6)
[2020-12-04 21:05] LABS: ALT 65 U/L (4-49); AST 68 U/L (17-59); African American GFR (CKD) >90 (>60 ml/min/1.73 sqM); Albumin 4.7 g/dL (3.5-5.0); Alkaline Phosphatase 91 U/L (38-126); Anion Gap 15 mmol/L; Blood Urea Nitrogen 7 mg/dL (9-20); Calcium 9.3 mg/dL (8.4-10.2); Carbon Dioxide 20 mmol/L (22-30); Chloride 101 mmol/L (98-107); Glucose 106 mg/dL (74-99); Non-African American GFR(CKD) >90 (>60 ml/min/1.73 sqM); Sodium 136 mmol/L (137-145); Total Bilirubin 0.6 mg/dL (0.2-1.3); Total Protein 7.5 g/dL (6.3-8.2)
--- NOTE | 2020-12-04 21:24 | ED ---
General Adult HPI - General Chief complaint: Dizziness Stated complaint: elevated BP Time Seen by Provider: 12/04/20 19:52 Source: patient Mode of arrival: wheelchair Limitations: no limitations - History of Present Illness Initial comments: 40 year-old male patient presents to the emergency department for evaluation of weakness, dizziness, and elevated blood pressure. Patient states symptoms started earlier today. States his BP at home was 190 systolic. Did not take his BP medication today. States he did have an episode of vomiting. Denies fever or chills. Denies any cough or congestion. Denies chest pain or shortness of breath. States he did have a little bit of a fall yesterday but denies hitting his head. States he did strike her shoulder but he is able to move it is just mildly sore. Denies numbness, tingling, weakness to his extremities. Denies any other medical problems. States he did have [employer] Covid vaccine in August, he did test positive for Covid in May but had minimal symptoms. - Related Data Home Medications Medication Instructions Recorded Confirmed Colchicine [Colcrys] 0.6 mg PO BID PRN 12/04/20 12/04/20 Losartan Potassium [Cozaar] 50 mg PO DAILY 12/04/20 12/04/20 Tadalafil [Cialis] 5 mg PO DAILY PRN 12/04/20 12/04/20 Allergies Allergy/AdvReac Type Severity Reaction Status Date / Time pollen extracts AdvReac Mild congestion Verified 12/04/20 21:20 mold AdvReac congestion Verified 12/04/20 21:20 Review of Systems ROS Statement: Those systems with pertinent positive or pertinent negative responses have been documented in the HPI. ROS Other: All systems not noted in ROS Statement are negative. Past Medical History Past Medical History: Hypertension Additional Past Medical History / Comment(s): seasonal allergies, hiatal hernia, lower abdominal pain when eating,. COVID 06/18 History of Any Multi-Drug Resistant Organisms: None Reported Past Surgical History: Cholecystectomy, Orthopedic Surgery Additional Past Surgical History / Comment(s): ORIF left wrist Past Anesthesia/Blood Transfusion Reactions: Family History of Problems w/ Anesthesia Additional Past Anesthesia/Blood Transfusion Reaction / Comment(s): mother-hard time coming out Past Psychological History: No Psychological Hx Reported Smoking Status: Never smoker Past Alcohol Use History: Occasional Past Drug Use History: None Reported - Past Family History Mother Family Medical History: No Reported History Additional Family Medical History / Comment(s): stent placed 3 years ago at age 60 Father Family Medical History: Congestive Heart Failure (CHF) General Exam Limitations: no limitations General appearance: alert, in no apparent distress, other (This is a well- developed, well-nourished adult male patient in no acute distress. Vital signs upon presentation are temperature 99.1F, pulse 102, respirations 20, blood pressure 157/94, pulse ox 98% on room air.) Eye exam: Present: normal appearance, PERRL, EOMI. Absent: scleral icterus, conjunctival injection, nystagmus, periorbital swelling ENT exam: Present: normal exam, normal oropharynx, mucous membranes moist Respiratory exam: Present: normal lung sounds bilaterally. Absent: respiratory distress, wheezes, rales, rhonchi, stridor Cardiovascular Exam: Present: normal rhythm, tachycardia, normal heart sounds. Absent: systolic murmur, diastolic murmur, rubs, gallop, clicks GI/Abdominal exam: Present: soft, normal bowel sounds. Absent: distended, tenderness, guarding, rebound, rigid Neurological exam: Present: alert, oriented X3, CN II-XII intact Expanded Speech: Present: fluid speech Cranial nerves: EOM's Intact: Normal, Nystagmus: Normal Motor strength exam: RUE: 5, LUE: 5, RLE: 5, LLE: 5 Eye Response: (4) open spontaneously Motor Response: (6) obeys commands Verbal Response: (5) oriented Shy Total: 15 Psychiatric exam: Present: normal affect, normal mood Skin exam: Present: warm, dry, intact, normal color. Absent: rash Course Vital Signs 12/04/20 12/04/20 12/04/20 19:47 20:16 20:30 Temperature 99.1 F Pulse Rate 102 H 92 Respiratory 20 18 16 Rate Blood Pressure 157/94 168/105 O2 Sat by Pulse 98 96 Oximetry 12/04/20 12/04/20 12/04/20 21:00 21:30 22:00 Temperature Pulse Rate 80 92 98 Respiratory 18 18 18 Rate Blood Pressure 163/112 159/108 159/107 O2 Sat by Pulse 98 98 99 Oximetry 12/04/20 23:28 Temperature Pulse Rate 91 Respiratory 18 Rate Blood Pressure 155/101 O2 Sat by Pulse 96 Oximetry EKG Findings - EKG Comments: EKG Findings:: EKG obtained at 2010 shows normal sinus rhythm with a sinus arrhythmia. Ventricular rate is 93, W[place] interval 176, QRS duration 86, QT 362, QTc 450. No evidence of ST elevation or depression. Medical Decision Making - Medical Decision Making 40-year-old male patient presents to the emergency department today for evaluation of elevated blood pressure, dizziness, weakness. Physical examination was unremarkable. Labs reviewed and were unremarkable. EKG showed sinus rhythm. Blood pressures are mildly elevated in the 150s over 100 systolic. He was given his home dose of losartan. Given a dose of hydralazine. He'll be discharged to follow-up with the primary care physician for recheck in 1-2 days. Return parameters were discussed in detail. He verbalizes understanding and agrees with this plan. My attending is Dr. Dempsey. - Lab Data Result diagrams: 12/04/20 20:42 12/04/20 20:42 Lab Results 12/04/20 12/04/20 12/04/20 Range/Units 20:42 20:42 20:42 WBC 6.2 (3.8-10.6) k/uL RBC 4.55 (4.30-5.90) m/uL Hgb 15.4 (13.0-17.5) gm/dL Hct 44.1 (39.0-53.0) % MCV 96.9 (80.0-100.0) fL MCH 33.8 (25.0-35.0) pg MCHC 34.9 (31.0-37.0) g/dL RDW 13.1 (11.5-15.5) % Plt Count 210 (150-450) k/uL MPV 7.4 Neutrophils % 76 % Lymphocytes % 16 % Monocytes % 5 % Eosinophils % 2 % Basophils % 1 % Neutrophils # 4.7 (1.3-7.7) k/uL Lymphocytes # 1.0 (1.0-4.8) k/uL Monocytes # 0.3 (0-1.0) k/uL Eosinophils # 0.1 (0-0.7) k/uL Basophils # 0.0 (0-0.2) k/uL Sodium 136 L (137-145) mmol/L Potassium 4.0 (3.5-5.1) mmol/L Chloride 101 (98-107) mmol/L Carbon Dioxide 20 L (22-30) mmol/L Anion Gap 15 mmol/L BUN 7 L (9-20) mg/dL Creatinine 0.81 (0.66-1.25) mg/dL Est GFR (CKD-EPI)AfAm >90 (>60 ml/min/1.73 sqM) Est GFR (CKD-EPI)NonAf >90 (>60 ml/min/1.73 sqM) Glucose 106 H (74-99) mg/dL Calcium 9.3 (8.4-10.2) mg/dL Total Bilirubin 0.6 (0.2-1.3) mg/dL AST 68 H (17-59) U/L ALT 65 H (4-49) U/L Alkaline Phosphatase 91 (38-126) U/L Troponin I <0.012 (0.000-0.034) ng/mL Total Protein 7.5 (6.3-8.2) g/dL Albumin 4.7 (3.5-5.0) g/dL Urine Color Urine Appearance (Clear) Urine pH (5.0-8.0) Ur Specific Ono (1.001-1.035) Urine Protein (Negative) Urine Glucose (UA) (Negative) Urine Ketones (Negative) Urine Blood (Negative) Urine Nitrite (Negative) Urine Bilirubin (Negative) Urine Urobilinogen (<2.0) mg/dL Ur Leukocyte Esterase (Negative) Coronavirus (PCR) (Not Detectd) 12/04/20 12/04/20 Range/Units 20:42 22:18 WBC (3.8-10.6) k/uL RBC (4.30-5.90) m/uL Hgb (13.0-17.5) gm/dL Hct (39.0-53.0) % MCV (80.0-100.0) fL MCH (25.0-35.0) pg MCHC (31.0-37.0) g/dL RDW (11.5-15.5) % Plt Count (150-450) k/uL MPV Neutrophils % % Lymphocytes % % Monocytes % % Eosinophils % % Basophils % % Neutrophils # (1.3-7.7) k/uL Lymphocytes # (1.0-4.8) k/uL Monocytes # (0-1.0) k/uL Eosinophils # (0-0.7) k/uL Basophils # (0-0.2) k/uL Sodium (137-145) mmol/L Potassium (3.5-5.1) mmol/L Chloride (98-107) mmol/L Carbon Dioxide (22-30) mmol/L Anion Gap mmol/L BUN (9-20) mg/dL Creatinine (0.66-1.25) mg/dL Est GFR (CKD-EPI)AfAm (>60 ml/min/1.73 sqM) Est GFR (CKD-EPI)NonAf (>60 ml/min/1.73 sqM) Glucose (74-99) mg/dL Calcium (8.4-10.2) mg/dL Total Bilirubin (0.2-1.3) mg/dL AST (17-59) U/L ALT (4-49) U/L Alkaline Phosphatase (38-126) U/L Troponin I (0.000-0.034) ng/mL Total Protein (6.3-8.2) g/dL Albumin (3.5-5.0) g/dL Urine Color Yellow Urine Appearance Clear (Clear) Urine pH 6.0 (5.0-8.0) Ur Specific Ono 1.028 (1.001-1.035) Urine Protein Trace H (Negative) Urine Glucose (UA) Negative (Negative) Urine Ketones 3+ H (Negative) Urine Blood Negative (Negative) Urine Nitrite Negative (Negative) Urine Bilirubin Negative (Negative) Urine Urobilinogen <2.0 (<2.0) mg/dL Ur Leukocyte Esterase Negative (Negative) Coronavirus (PCR) Not Detected (Not Detectd) Disposition Clinical Impression: High blood pressure, Dizziness Disposition: HOME SELF-CARE Condition: Good Instructions (If sedation given, give patient instructions): Hypertension (ED), Dizziness (ED) Additional Instructions: Follow-up with your primary care physician for recheck in 1-2 days. Keep a log of your blood pressures for him. Take her medicines as prescribed. Return to the emergency department for any new, worsening, or concerning symptoms. Is patient prescribed a controlled substance at d/c from ED?: No Referrals: Jono Jackson DO [Primary Care Provider] - 1-2 days Time of Disposition: :18
[2020-12-04 21:42] VITALS: RESP 18
[2020-12-04] MEDS ORDERED: hydrALAZINE HCL 20 MG/ML 1 ML VIAL IVP STA (22:48)
[2020-12-04 22:50] LABS: Appearance,Urine Clear (Clear); Bilirubin,Urine Negative (Negative); Blood,Urine Negative (Negative); Color,Urine Yellow; Glucose,Urine (UA) Negative (Negative); Ketones,Urine 3+ (Negative); Leukocyte Esterase,Urine Negative (Negative); Nitrite,Urine Negative (Negative); Protein,Urine Trace (Negative); Specific Gravity,Urine 1.028 (1.001-1.035); Urobilinogen,Urine <2.0 mg/dL (<2.0)
[2020-12-04] MEDS ORDERED: ONDANSETRON 4 MG ODT STARTER PACK 2 TAB BTL PO STA (23:17)
[2020-12-04 23:29] VITALS: BP 155/101; PULSE 91
== END 2020-12-04 23:33 | disposition home or self-care (01) ==
LOC: EC 19:25
DX: R42 Dizziness and giddiness (principal); I10 Essential (primary) hypertension; Z90.49 Acquired absence of other specified parts of digestive tract; Z20.822 Contact with and (suspected) exposure to COVID-19
CPT/HCPCS: 99285; 96374; 96375; 96361 ×3; 36415; 93005; 80053; 84484; 85025; 81003; 87635; J0360; J2405; S0119

== ENCOUNTER → 2021-02-27 | Outpatient (CLI) | payer BC ==
--- NOTE | 2021-02-27 14:54 | XR ---
EXAMINATION TYPE: XR foot complete RT DATE OF EXAM: 02/27/2021 COMPARISON: NONE HISTORY: Pain TECHNIQUE: Three views are submitted. FINDINGS: The osseous structures are intact. There is no acute fracture or dislocation. Mild arthropathy fir st MTP preserved. IMPRESSION: 1. Arthropathy first MTP. No erosive changes..
== END | disposition home or self-care (01) ==
LOC: RADXRMAIN 14:25
PROVIDERS: ATTEND Family Medicine
DX: M19.071 Primary osteoarthritis, right ankle and foot (principal)

== ENCOUNTER → 2022-11-25 | Outpatient (CLI) | payer BC ==
--- NOTE | 2022-11-25 09:40 | XR ---
EXAMINATION TYPE: XR lumbosacral spine min 4V DATE OF EXAM: 11/25/2022 CLINICAL HISTORY: pain COMPARISON: NONE TECHNIQUE: Frontal, lateral, and oblique images of the lumbar spine are obtained. FINDINGS: There are 5 lumbar type vertebral bodies identified. The lumbar spine shows satisfactory alignment without evidence of acute fracture or dislocation. Vertebral body heights are within normal limits. Disc spaces are well preserved. The overlying soft tissue appears unremarkable. IMPRESSION: No acute fracture or dislocation is seen in the lumbar spine.ICD 10 NO FRACTURE, INITIAL EVALUATION
--- NOTE | 2022-11-25 11:17 | XR ---
EXAMINATION TYPE: XR Hip Bilateral Complete DATE OF EXAM: 11/25/2022 COMPARISON: NONE HISTORY: Pain TECHNIQUE: 2 views of each hip submitted FINDINGS: There is no evidence of erosive change or acute fracture. Hypertrophic change of the acetabulum narrowing along the superior margin of the joint space. Calcifi cation adjacent greater trochanter. There are pelvic phleboliths. Mild bilateral hypertrophic SI joint arthropathy. There is a moderate arthropathy of the left hip with hypertrophic changes in the acetabulum. IMPRESSION: 1. Bilateral hip arthropathy correlate for femoral acetabular impingement. 2. Calcification adjacent to the greater trochanter of the right hip associated with trochanteric asc ites.
== END | disposition home or self-care (01) ==
LOC: RADXRMAIN 09:00
PROVIDERS: ATTEND Family Medicine
DX: M16.0 Bilateral primary osteoarthritis of hip (principal); R18.8 Other ascites; M54.50 Low back pain, unspecified
CPT/HCPCS: 72110; 73521

== ENCOUNTER 2024-07-26 12:49 | Day surgery (SDC) | payer BC ==
[2024-07-26] MEDS: LACTATED RINGERS 1,000 ML IV SCH (13:44)
[2024-07-26 13:46] VITALS: TEMP 98
[2024-07-26] MEDS ORDERED: PROPOFOL 10 MG/ML 20 ML VIAL IV ONE (14:30)
[2024-07-26] MEDS ORDERED: LIDOCAINE 2% (PF) 20 MG/ML 5 ML VIAL ONE (14:30)
[2024-07-26] MEDS: LACTATED RINGERS 1,000 ML IV ONE ×3 (14:30→14:42)
[2024-07-26] MEDS ORDERED: fentaNYL (PF) 50 MCG/ML 2 ML AMP ONE (14:30)
--- NOTE | 2024-07-26 14:34 | P.GSHP ---
History of Present Illness H&P Date: 07/26/24 Chief Complaint: Epigastric pain Is a 43-year-old male with complaints of epigastric pain. Patient presents today for EGD. Past Medical History Past Medical History: Hypertension Additional Past Medical History / Comment(s): seasonal allergies, hiatal hernia, lower abdominal pain when eating History of Any Multi-Drug Resistant Organisms: None Reported Past Surgical History: Cholecystectomy, Orthopedic Surgery Additional Past Surgical History / Comment(s): ORIF left wrist, EGD, colonoscopy Past Anesthesia/Blood Transfusion Reactions: Family History of Problems w/ Anesthesia Additional Past Anesthesia/Blood Transfusion Reaction / Comment(s): mother-hard time coming out Smoking Status: Former smoker - Past Family History Mother Family Medical History: No Reported History Additional Family Medical History / Comment(s): stent placed 3 years ago at age 60 Father Family Medical History: Congestive Heart Failure (CHF) Medications and Allergies Home Medications Medication Instructions Recorded Confirmed Type Colchicine [Colcrys] 0.6 mg PO BID PRN 12/04/20 07/21/24 History tadalafiL [Cialis] 5 mg PO DAILY PRN 12/04/20 07/21/24 History Multivitamins, Thera [Multivitamin 1 tab PO DAILY 07/21/24 07/21/24 History (formulary)] Allergies Allergy/AdvReac Type Severity Reaction Status Date / Time pollen extracts AdvReac Mild congestion Verified 07/21/24 10:16 mold AdvReac congestion Verified 07/21/24 10:16 Surgical - Exam Vital Signs Temp Pulse Resp BP Pulse Ox 98 F 58 L 18 121/78 100 07/26/24 13:45 07/26/24 13:45 07/26/24 13:45 07/26/24 13:45 07/26/24 13:45 - General well developed, well nourished, no distress - Eyes PERRL - ENT normal pinna - Neck no masses - Respiratory normal expansion - Cardiovascular Rhythm: regular - Abdomen Abdomen: soft, non tender Assessment and Plan Plan: Epigastric pain. Performed EGD.
--- NOTE | 2024-07-26 14:43 | P.OP ---
Date of Procedure: 07/26/24 Preoperative Diagnosis: Gerd Epigastric pain Postoperative Diagnosis: Antral gastritis Mild esophagitis Procedure(s) Performed: EGD Anesthesia: MAC Surgeon: Hans Ramos Pathology: other (Antrum, esophagus) Condition: stable Disposition: PACU Description of Procedure: The patient was placed on the endoscopy table in the lateral position. He received IV sedation. The Gastroflux oropharynx passed in the esophagus and the stomach. Scope was placed with the pylorus. The 1st and 2nd portion of the duodenum appeared normal. Scope was then brought back to the antrum this appeared mildly Flaim. A biopsy was performed. Scope was then retroflexed the Mainer of the stomach appeared normal. There was no significant hiatal hernia. The GE junction was at 40 cm. The distal esophagus appeared minimally inflamed. A biopsy performed of the proximal esophagus appeared normal. Scope withdrawn the patient.
[2024-07-26 15:00] VITALS: BP 120/77; PULSE 52; RESP 16
== END 2024-07-26 15:34 | disposition home or self-care (01) ==
LOC: ORWHC2ENDO 12:49
PROVIDERS: ATTEND Surgery
DX: K29.50 Unspecified chronic gastritis without bleeding (principal); K21.9 Gastro-esophageal reflux disease without esophagitis; K21.00 Gastro-esophageal reflux disease with esophagitis, without bleeding; I10 Essential (primary) hypertension; Z87.891 Personal history of nicotine dependence
CPT/HCPCS: 88305; 43239; J3010; J2704; J2003

== ENCOUNTER → 2024-10-27 | Outpatient (CLI) | payer BC ==
--- NOTE | 2024-10-28 10:19 | MR ---
INDICATION: Patient age:Male; 44 years old; Reason for study: M54.12 R20.2 PARESTHESIA OF SKIN; PHH. COMPARISON: Lumbosacral spine radiograph 11/25/2022. TECHNIQUE: Multi planar, multi sequence imaging was performed of the cervical spine. No Gadolinium wa s given. FINDINGS: Alignment: The cervical vertebral bodies have preserved heights. Alignment is within normal limits gi eug[facility] patient positioning. Bones: Bone signal is within normal limits. Cord: The spinal cord is unremarkable with regards to their signal intensity and morphology. Discs: Multilevel disc desiccation is present with disc height loss. Most prominent at C5-C6 and C6- C7. C2-C3: No significant disc pathology. The spinal canal is patent. No neural foraminal stenosis. C3-C4: Mild broad-based disc bulge with minimal effacement of the anterior thecal sac. No significant spinal canal stenosis. Uncovertebral joint hypertrophy. Minimal right neural foraminal narrowing. Th e left neural foramen is patent. C4-C5: Broad-based disc bulge with mild effacement of the anterior thecal sac. No significant spinal canal stenosis. Uncovertebral joint hypertrophy. The left neural foramen is patent. Mild right neural foraminal stenosis. C5-C6: Broad-based disc bulge with effacement of the anterior thecal sac and abutment of the ventral spinal cord resulting in moderate spinal canal stenosis. No cord signal change. Uncovertebral joint h ypertrophy. Severe right and moderate left neural foraminal stenosis. C6-C7: Broad-based disc bulge with moderate effacement of the anterior thecal sac. No abutment of the ventral spinal cord. Results in mild spinal canal stenosis. Uncovertebral joint hypertrophy. Modera te left and moderate to severe right neural foraminal stenosis. C7-T1: No significant disc pathology. The spinal canal is patent. No neural foraminal stenosis. Other: None. IMPRESSION: Multilevel disc degeneration with associated osteoarthritic changes. No disc herniation. Prominent di sc bulges at C5-C6 and C6-C7. Moderate spinal canal stenosis at C5-C6 with abutment of the ventral sp inal cord. No cord signal change. Prominent uncovertebral joint hypertrophy at C5-C6 and C6-C7 with v arying degrees of neural foraminal stenosis as described above. [facility], , 10/28/2024 10:17 AM
== END | disposition home or self-care (01) ==
LOC: RADMRIMAIN 16:41
PROVIDERS: ATTEND Family Medicine
DX: M47.22 Other spondylosis with radiculopathy, cervical region (principal); M50.122 Cervical disc disorder at C5-C6 level with radiculopathy; R20.0 Anesthesia of skin; R20.2 Paresthesia of skin; M99.71 Connective tissue and disc stenosis of intervertebral foramina of cervical region; M48.02 Spinal stenosis, cervical region
CPT/HCPCS: 72141